=== PATIENT | female | born 1985 | race American Indian/Alaskan Native ===

== ENCOUNTER 2017-07-11 06:23 | Inpatient (IN) | payer MEDICAID ==
--- NOTE | 2017-07-11 08:39 | History and Physical Report ---
History of Present Illness Date of examination: 07/11/17 Date of admission: 07/11/17 06:24 Chief complaint: Labor History of present illness: Pt is a 31yo BF EDC 07/11/17; EGA 40 0/7 weeks presents to L&D complaining of RUC's q 2-4 mins. She received care at [facility] since 19 weeks and course has been unremarkable except for sickle cell trait. records are not available and GBS is unknown. Past History Past Medical History: no pertinent history Past Surgical History: no surgical history [employer] History: abnormal PAP smear Family/Genetic History: none Social history: no significant social history, single - Obstetrical History Expected Date of Delivery: 07/11/17 Actual Gestation: 40 Week(s) 0 Day(s) : 3 Medications and Allergies Allergies Allergy/AdvReac Type Severity Reaction Status Date / Time aspirin AdvReac Swelling Verified 03/30/14 12:05 Home Medications Medication Instructions Recorded Confirmed Last Taken Type Pnv with Ca,No.72/Iron/FA 1 tab PO DAILY 03/30/14 07/11/17 07/10/17 History [ Plus Tablet] 1 Active Meds: Active Medications Ephedrine Sulfate (Ephedrine Sulfate) 10 mg IV Q2M PRN PRN Reason: Hypotension Ampicillin Sodium (Polycillin/Ns 2 Gm/100 Ml) 2 gm in 100 mls @ 100 mls/hr IV ONCE ONE PRN Reason: Protocol Stop: 07/11/17 09:59 Lactated Ringer's (Lactated Ringers) 1,000 mls @ 125 mls/hr IV DIRECT RIKA Oxytocin/Sodium Chloride (Pitocin/Ns 20 Unit/1000ml Drip) 20 units in 1,000 mls @ 125 mls/hr IV DIRECT RIKA Oxytocin/Sodium Chloride (Pitocin/Ns 30 Unit/500ml) 30 units in 500 mls @ 1 mls /hr IV TITR RIKA; 1 MILLIUNITS/MIN PRN Reason: Protocol Lidocaine (Xylocaine 2%) 20 ml INFILTRATI ONCE ONE Stop: 07/11/17 08:28 Mineral Oil (Mineral Oil) 30 ml PO QHS PRN PRN Reason: Constipation Terbutaline Sulfate (Brethine) 0.25 mg SUB-Q ONCE PRN PRN Reason: Hyperstimulation/Hypertonicity Terbutaline Sulfate (Brethine) 0.25 mg IVP ONCE PRN PRN Reason: Hyperstimulation/Hypertonicity Review of Systems All systems: negative - Vital Signs Vital signs: Vital Signs Temp Resp 98.5 F 18 07/11/17 06:36 07/11/17 06:36 Temp Pulse Resp BP Pulse Ox 98.5 F 90 18 96 07/11/17 06:36 07/11/17 08:36 07/11/17 06:36 07/11/17 08:36 - Physical Exam Breasts: Positive: deferred Cardiovascular: Regular rate Lungs: Positive: Clear to auscultation Abdomen: Positive: normal appearance Genitourinary (Female): Positive: normal external genitalia Vagina: Positive: normal moisture Uterus: Positive: enlarged Extremities: Positive: normal - Obstetrical FHR: category 1 Uterine Contraction Monitor Mode: External Cervical Dilatation: 7 Cervical Effacement Percentage: 100 station: -2 Uterine Contraction Pattern: Regular Uterine Tone Measurement Phase: Contraction Uterine Contraction Intensity: Moderate Results Result Diagrams: 07/11/17 08:40 All other labs normal. Assessment and Plan - Patient Problems (1) 40 weeks gestation of Onset Date: 07/11/17 Current Visit: Yes Status: Acute Plan to address problem: A: IUP @ 40 0/7 weeks in labor Unknown GBS P: Admit to L&D for expectant vaginal delivery IV Ampicillin
[2017-07-11] MEDS ORDERED: PITOCin/NS 20 UNIT/1000ML DRIP 20 UNITS/1,000 ML BAG IV SCH ×2 (09:00→13:00)
[2017-07-11] MEDS ORDERED: PITOCin/NS 30 UNIT/500ML 30 UNITS/500 ML BAG IV SCH (09:00)
[2017-07-11] MEDS ORDERED: POLYCILLIN/NS 2 GM/100 ML 2 GM/100 ML BAG IV ONE (09:00)
[2017-07-11] MEDS ORDERED: BRETHINE IVP PRN (09:00)
[2017-07-11] MEDS ORDERED: BRETHINE SUB-Q PRN (09:00)
[2017-07-11] MEDS ORDERED: ePHEDrine SULFATE IV PRN (09:00)
[2017-07-11] MEDS ORDERED: XYLOCAINE 2% INFILTRATI NR (09:00)
[2017-07-11] MEDS ORDERED: SUBLIMAZE IV PRN (09:00)
[2017-07-11] MEDS ORDERED: MINERAL OIL PO PRN (09:00)
[2017-07-11] MEDS ORDERED: LACTATED RINGERS 1,000 ML IV SCH (09:00)
[2017-07-11 09:10] LABS: Hematocrit 36.8 % (30.3-42.9); Hemoglobin 12.4 gm/dl (10.1-14.3); Mean Corpuscular HGB Conc 34 % (30-34); Mean Corpuscular Hemoglobin 28 pg (28-32); Mean Corpuscular Volume 84 fl (79-97); Red Blood Count 4.37 M/mm3 (3.65-5.03); Red Cell Distribution Width 15.9 % (13.2-15.2)
[2017-07-11 09:14] LABS: Platelet Count 195 K/mm3 (140-440)
--- NOTE | 2017-07-11 09:49 | Procedure Note ---
OB Delivery Note - Delivery Date of Delivery: 07/11/17 Surgeon: JACINDA OTERO Estimated blood loss: 200cc - Vaginal Delivery presentation: vertex Delivery position: OA Intrapartum events: precipitous labor- <3hr Delivery induction: none Delivery augmentation: rupture of membranes Delivery monitor: external FHT, external uterine Route of delivery: Delivery placenta: spontaneous Delivery cord: 3 umbilical vessels Episiotomy: none Delivery laceration: none Anesthesia: none Delivery comments: delivered OA and placed on Mom's chest for [id number] bonding and delayed cord clamping. - Infant A at 1 minute: 8 at 5 minutes: 9 Infant Gender: Female (3552gms)
[2017-07-11] MEDS ORDERED: PHENERGAN PO PRN (12:58)
[2017-07-11] MEDS ORDERED: TYLENOL PO PRN (12:58)
[2017-07-11] MEDS ORDERED: MILK OF MAGNESIA PO PRN (12:58)
[2017-07-11] MEDS ORDERED: LANSINOH TP PRN (12:58)
[2017-07-11] MEDS ORDERED: PERCOCET 5/325 PO PRN (12:58)
[2017-07-11] MEDS ORDERED: DULCOLAX PR PRN (12:58)
[2017-07-11] MEDS ORDERED: ZOFRAN IV PRN (12:58)
[2017-07-11] MEDS ORDERED: PHENERGAN PR PRN (12:58)
[2017-07-11] MEDS ORDERED: TUCKS PAD TP PRN (12:58)
[2017-07-11] MEDS ORDERED: BENADRYL PO PRN (12:58)
[2017-07-11] MEDS ORDERED: SODIUM CHLORIDE FLUSH SYRINGE 10 ML IV NR (13:00)
[2017-07-11] MEDS ORDERED: MOTRIN PO SCH (13:00)
[2017-07-11] MEDS: NORCO 5/325 PO PRN (19:48)
[2017-07-12 00:54] LABS: Hematocrit 36.6 % (30.3-42.9); Hemoglobin 12.3 gm/dl (10.1-14.3)
[2017-07-12] MEDS: COLACE PO SCH ×3 (05:13→23:41)
[2017-07-12] MEDS: FEOSOL PO SCH ×3 (05:13→23:42)
[2017-07-12] MEDS ORDERED: BOOSTRIX IM ONE (06:00)
[2017-07-12] MEDS ORDERED: M-M-R II VACCINE SUB-Q ONE (06:00)
--- NOTE | 2017-07-12 08:48 | Progress Note ---
Assessment and Plan - Patient Problems (1) 40 weeks gestation of Onset Date: 07/11/17 Current Visit: Yes Status: Resolved (2) (spontaneous vaginal delivery) Onset Date: 07/12/17 Current Visit: No Status: Resolved Plan to address problem: A: S/P - PPD #1 Doing well P: May go home tomorrow. Subjective - Subjective Date of service: 07/12/17 Principal diagnosis: s/p - PPD #1 Interval history: Pt is feeling well without complaints. Bleeding improved. Patient reports: appetite normal, voiding normally, pain well controlled, flatus , ambulating normally [place]: doing well, bottle feeding Objective - Vital Signs Latest vital signs: Vital Signs Temp Pulse Resp BP BP Pulse Ox 07/12/17 00:50 98.5 F 90 20 93/42 97 07/11/17 19:48 18 07/11/17 16:20 98.1 F 97 H 20 114/51 07/11/17 12:45 99 F 90 20 100/48 07/11/17 10:11 92 H 113/54 07/11/17 09:57 96 H 124/60 07/11/17 09:36 94 07/11/17 09:32 122 H 96 07/11/17 09:27 106 H 94 07/11/17 09:24 86 94 07/11/17 09:22 100 H 135/65 96 07/11/17 09:17 94 H 93 07/11/17 09:12 102 H 97 07/11/17 09:11 60 90 07/11/17 09:07 100 H 96 07/11/17 09:06 98.3 F 109 H 20 135/65 97 07/11/17 09:02 102 H 98 07/11/17 09:01 58 L 74 L 07/11/17 08:57 103 H 98 Intake and Output 07/11/17 07/12/17 07/12/17 22:59 06:59 14:59 Intake Total 440 360 Output Total 1600 900 Balance -1160 -540 Intake: Oral 440 360 Output: Urine 1600 900 Void 1600 900 Other: Total, Intake Amount 200 120 Total, Output Amount 700 400 # Voids Void 2 1 - Exam Breasts: Present: deferred Cardiovascular: Present: Regular rate Lungs: Present: Clear to auscultation Abdomen: Present: normal appearance, soft Uterus: Present: normal, firm, fundal height below umbilicus Extremities: Present: normal - Labs Labs: Abnormal lab results 07/11/17 Range/Units 08:40 WBC 14.3 H (4.5-11.0) K/mm3 RDW 15.9 H (13.2-15.2) % Laboratory Tests 07/11/17 07/11/17 07/11/17 08:40 08:40 08:40 WBC 14.3 H RBC 4.37 Hgb 12.4 Hct 36.8 MCV 84 MCH 28 MCHC 34 RDW 15.9 H Plt Count 195 RPR Nonreactive Blood Type O POSITIVE Antibody Screen Negative 07/12/17 00:27 WBC RBC Hgb 12.3 Hct 36.6 MCV MCH MCHC RDW Plt Count RPR Blood Type Antibody Screen
--- NOTE | 2017-07-12 08:59 | Discharge Summary ---
Providers - Providers Date of Admission: 07/11/17 06:24 Date of discharge: 07/13/17 Attending physician: JACINDA OTERO Primary care physician: JACINDA OTERO Hospitalization Reason for admission: active labor, IUP at term Delivery: Episiotomy: none Laceration: none Other procedures: none complications: none Discharge diagnosis: IUP at term delivered [place] baby: female Hospital course: Unremarkable. Condition at discharge: Good Disposition: DC-01 TO HOME OR SELFCARE - Discharge Diagnoses (1) 40 weeks gestation of Status: Resolved (2) (spontaneous vaginal delivery) Status: Resolved Plan - Discharge Medications Prescriptions: Ibuprofen [Motrin] 600 mg PO Q8H PRN #30 tablet PRN Reason: Pain Vit-Fe Fumar-FA [ Vitamin] 1 each PO QDAY #30 tablet - Provider Discharge Summary Activity: routine, no sex for 6 weeks, no heavy lifting 4 weeks, no strenuous exercise Diet: routine Instructions: routine Additional instructions: [] Smoking cessation referral if applicable(refer to patient education folder for contact #) [] Refer to [facility]'s [facility] Booklet Call your doctor immediately for: * Fever > 100.5 * Heavy vaginal bleeding ( >1 pad per hour) * Severe persistent headache * Shortness of breath * Reddened, hot, painful area to leg or breast * Drainage or odor from incision. * Keep incision clean and dry at all times and follow doctor's instructions regarding bathing/showering - Follow up plan Follow up: JACINDA OTERO MD [Primary Care Provider] - 6 Weeks
[2017-07-12] MEDS: PRENATAL VITAMIN PO SCH (10:46)
[2017-07-12] MEDS ORDERED: Fluarix Quad 2017-2018(36 MOS+ IM ONE (12:00)
[2017-07-12] MEDS: NORCO 5/325 PO PRN (17:48)
[2017-07-13] MEDS: NORCO 5/325 PO PRN (08:00)
[2017-07-13] MEDS: FEOSOL PO SCH (10:28)
[2017-07-13] MEDS: COLACE PO SCH (10:28)
[2017-07-13] MEDS: PRENATAL VITAMIN PO SCH (10:28)
[2017-07-13 15:55] VITALS: BP 118/68
== END 2017-07-13 15:40 | disposition home or self-care (01) | DRG 775 ==
LOC: TRG 06:23 → LD 06:24 → TRG 07:10 → OB 11:35
PROVIDERS: ADMIT Obstetrics & Gynecology; ATTEND Obstetrics & Gynecology
PROC: 10E0XZZ Delivery of Products of Conception, External Approach (ICD-10-PCS; principal; 2017-07-11)
PROC: 3E0234Z Introduction of Serum, Toxoid and Vaccine into Muscle, Percutaneous Approach (ICD-10-PCS; 2017-07-12)
DX: O62.3 Precipitate labor (principal); Z3A.40 40 weeks gestation of pregnancy; Z37.0 Single live birth; Z88.6 Allergy status to analgesic agent; Z23 Encounter for immunization; O99.02 Anemia complicating childbirth; D57.3 Sickle-cell trait
CPT/HCPCS: 36415; 85014; 85018; 85027; 86592; 86850; 86900; 86901; 90471; 90686; 90715; J0290; J2590; J3010; J7120

== ENCOUNTER 2021-08-16 18:08 | Emergency (ER) | payer MEDICAID ==
[2021-08-16 18:22] VITALS: BP 126/59
[2021-08-16 19:42] LABS: Basophils # (Auto) 0.1 K/mm3 (0.0-0.1); Basophils % (Auto) 0.7 % (0.0-1.8); Eosinophils # (Auto) 0.2 K/mm3 (0.0-0.4); Hematocrit 36.7 % (30.3-42.9); Hemoglobin 12.3 gm/dl (10.1-14.3); Lymphocytes # (Auto) 3.2 K/mm3 (1.2-5.4); Lymphocytes % (Auto) 42.9 % (13.4-35.0); Mean Corpuscular HGB Conc 33 % (30-34); Mean Corpuscular Volume 83 fl (79-97); Monocytes # (Auto) 0.6 K/mm3 (0.0-0.8); Monocytes % (Auto) 8.5 % (0.0-7.3); Platelet Count 311 K/mm3 (140-440); Red Blood Count 4.45 M/mm3 (3.65-5.03); Red Cell Distribution Width 16.3 % (13.2-15.2)
[2021-08-16 20:05] LABS: Alanine Aminotransferase 12 units/L (7-56); Albumin 4.4 g/dL (3.9-5); Blood Urea Nitrogen 11 mg/dL (7-17); Calcium 9.2 mg/dL (8.4-10.2); Hemolysis Index 13
[2021-08-16 20:10] LABS: Bacteria,Urine 1+ /HPF (Negative); Bilirubin,Urine NEG (Negative); Blood,Urine NEG (Negative); Color,Urine Yellow (Yellow); Mucus,Urine FEW /HPF; Protein,Urine <15 mg/dL mg/dL (Negative); Urobilinogen,Urine < 2.0 mg/dL (<2.0)
[2021-08-16 20:15] LABS: BUN/Creatinine Ratio 18
--- NOTE | 2021-08-16 21:13 | Emergency Department Report ---
ED Female HPI - General Chief complaint: Vaginal Bleeding Stated complaint: POSS MISCARRIAGE (BLEEDING) Source: patient Mode of arrival: Ambulatory Limitations: No Limitations - History of Present Illness Initial comments: 35-year-old female presents to the ED complaining of vaginal bleeding. Patient states that last menstrual cycle was June 18, 2021. Patient states that she went to [facility] [place] and had a test done and was positive. She states that she has some abdominal cramping today and vaginal bleeding x2 days. Patient states that vaginal bleeding has lightened up to a spotting but she did notice passing a clot on yesterday . Patient has not been evaluate by her UNDERTAKER ASSISTANT. Patient is 5 part 3 A1. She denies any vaginal discharge at present. Patient denies any fever chills or nausea. MD Complaint: vaginal bleeding Onset/Timin -: days(s) Associated Symptoms: denies other symptoms - Related Data : 5 Para: 3 A: 1 Home Medications Medication Instructions Recorded Confirmed Last Taken Pnv with Ca,No.72/Iron/FA 1 tab PO DAILY 03/30/14 07/11/17 07/10/17 [ Plus Tablet] 1 Previous Rx's Medication Instructions Recorded Last Taken Type Ibuprofen [Motrin] 600 mg PO Q8H PRN #30 tablet 07/12/17 Unknown Rx Vit-Fe Fumar-FA [ 1 each PO QDAY #30 tablet 07/12/17 Unknown Rx Vitamin] Acetaminophen [Acetaminophen 325 mg VA Q6HR PRN #30 supp 07/13/17 Unknown Rx SUPPOS] HYDROcodone/ACETAMINOPHEN [[place] 1 each PO Q6HR #7 tablet 07/13/17 Unknown Rx 5-325 Tablet] Ciprofloxacin HCl 500 mg PO BID 7 Days #14 tab 08/16/21 Unknown Rx Hyoscyamine Subl [Levsin Sl 0.125 0.125 mg SL Q6HR PRN 5 Days #20 tab 08/16/21 Unknown Rx TAB] Allergies Allergy/AdvReac Type Severity Reaction Status Date / Time aspirin Allergy Swelling Verified 07/11/17 13:06 NSAIDS (Non-Steroidal Allergy Hives Verified 07/11/17 13:17 Anti-Inflamma ED Review of Systems ROS: Stated complaint: POSS MISCARRIAGE (BLEEDING) Other details as noted in HPI Constitutional: denies: chills, fever Eyes: denies: eye pain, eye discharge, vision change ENT: denies: ear pain, throat pain Respiratory: denies: cough, shortness of breath, wheezing Cardiovascular: denies: chest pain, palpitations Endocrine: no symptoms reported Gastrointestinal: denies: abdominal pain, nausea, diarrhea Genitourinary: other (Vaginal bleeding). denies: urgency, dysuria, discharge Musculoskeletal: denies: back pain, joint swelling, arthralgia Skin: denies: rash, lesions Neurological: denies: headache, weakness, paresthesias Psychiatric: denies: anxiety, depression Hematological/Lymphatic: denies: easy bleeding, easy bruising ED Past Medical Hx - Past Medical History Hx Hypertension: No Hx Congestive Heart Failure: No Hx Diabetes: No Hx Deep Vein Thrombosis: No Hx Renal Disease: No Hx Sickle Cell Disease: Yes (trait) Hx Arthritis: No Hx Seizures: No Hx Asthma: No Hx COPD: No Hx HIV: No - Social History Smoking Status: Never Smoker - Medications Home Medications: Home Medications Medication Instructions Recorded Confirmed Last Taken Type Pnv with Ca,No.72/Iron/FA 1 tab PO DAILY 03/30/14 07/11/17 07/10/17 History [ Plus Tablet] 1 Ibuprofen [Motrin] 600 mg PO Q8H PRN #30 tablet 07/12/17 Unknown Rx Vit-Fe Fumar-FA [ 1 each PO QDAY #30 tablet 07/12/17 Unknown Rx Vitamin] Acetaminophen [Acetaminophen 325 mg VA Q6HR PRN #30 supp 07/13/17 Unknown Rx SUPPOS] HYDROcodone/ACETAMINOPHEN [[place] 1 each PO Q6HR #7 tablet 07/13/17 Unknown Rx 5-325 Tablet] Ciprofloxacin HCl 500 mg PO BID 7 Days #14 tab 08/16/21 Unknown Rx Hyoscyamine Subl [Levsin Sl 0.125 0.125 mg SL Q6HR PRN 5 Days #20 tab 08/16/21 Unknown Rx TAB] ED Physical Exam - General Limitations: No Limitations General appearance: alert, in no apparent distress - Head Head exam: Present: atraumatic, normocephalic - Eye Eye exam: Present: normal appearance - ENT ENT exam: Present: mucous membranes moist - Neck Neck exam: Present: normal inspection - Respiratory Respiratory exam: Present: normal lung sounds bilaterally. Absent: respiratory distress - Cardiovascular Cardiovascular Exam: Present: regular rate, normal rhythm. Absent: systolic murmur, diastolic murmur, rubs, gallop - GI/Abdominal GI/Abdominal exam: Present: soft, normal bowel sounds - Extremities Exam Extremities exam: Present: normal inspection - Back Exam Back exam: Present: normal inspection - Neurological Exam Neurological exam: Present: alert, oriented X3 - Psychiatric Psychiatric exam: Present: normal affect, normal mood - Skin Skin exam: Present: warm, dry, intact, normal color. Absent: rash ED Course Vital Signs 08/16/21 18:18 Temperature 99.0 F Pulse Rate 108 H Respiratory 20 Rate Blood Pressure 126/59 O2 Sat by Pulse 99 Oximetry ED Medical Decision Making - Lab Data Result diagrams: 08/16/21 19:29 08/16/21 19:29 - Medical Decision Making 35-year-old female presents to the ED complaining of vaginal bleeding. Patient states that last menstrual cycle was June 18, 2021. Patient states that she went to [facility] [place] and had a test done and was positive. She states that she has some abdominal cramping today and vaginal bleeding x2 days. Patient states that vaginal bleeding has lightened up to a spotting but she did notice passing a clot on yesterday . Patient has not been evaluate by her UNDERTAKER ASSISTANT. Patient is 5 part 3 A1. She denies any vaginal discharge at present. Patient denies any fever chills or nausea. Physical examination unremarkable. Plan is a patient that hCG shows less than 2 and non. Patient is to follow-up with UNDERTAKER ASSISTANT. Patient urinalysis show ed a urinary tract infection. Abnormal Lab Results 08/16/21 08/16/21 08/16/21 19:29 19:29 19:29 WBC 7.4 RBC 4.45 Hgb 12.3 Hct 36.7 MCV 83 MCH 28 MCHC 33 RDW 16.3 H Plt Count 311 Lymph % (Auto) 42.9 H Terry % (Auto) 8.5 H Eos % (Auto) 3.0 Baso % (Auto) 0.7 Lymph # (Auto) 3.2 Terry # (Auto) 0.6 Eos # (Auto) 0.2 Baso # (Auto) 0.1 Seg Neutrophils % 44.9 Seg Neutrophils # 3.3 Sodium Potassium Chloride Carbon Dioxide Anion Gap BUN Creatinine Estimated GFR BUN/Creatinine Ratio Glucose Calcium Total Bilirubin AST ALT Alkaline Phosphatase Total Protein Albumin Albumin/Globulin Ratio HCG, Quant < 2 Urine Color Urine Turbidity Urine pH Ur Specific [place] Urine Protein Urine Glucose (UA) Urine Ketones Urine Blood Urine Nitrite Urine Bilirubin Urine Urobilinogen Ur Leukocyte Esterase Urine WBC (Auto) Urine RBC (Auto) U Epithel Cells (Auto) Urine Bacteria (Auto) Urine Mucus Blood Type O POSITIVE 08/16/21 08/16/21 19:29 19:33 WBC RBC Hgb Hct MCV MCH MCHC RDW Plt Count Lymph % (Auto) Terry % (Auto) Eos % (Auto) Baso % (Auto) Lymph # (Auto) Terry # (Auto) Eos # (Auto) Baso # (Auto) Seg Neutrophils % Seg Neutrophils # Sodium 137 Potassium 4.1 Chloride 103.5 Carbon Dioxide 21 L Anion Gap 17 BUN 11 Creatinine 0.6 Estimated GFR > 60 BUN/Creatinine Ratio 18 Glucose 88 Calcium 9.2 Total Bilirubin 0.20 AST 13 ALT 12 Alkaline Phosphatase 58 Total Protein 7.9 Albumin 4.4 Albumin/Globulin Ratio 1.3 HCG, Quant Urine Color Yellow Urine Turbidity Clear Urine pH 5.0 Ur Specific [place] 1.013 Urine Protein <15 mg/dl Urine Glucose (UA) Neg Urine Ketones Neg Urine Blood Neg Urine Nitrite Pos Urine Bilirubin Neg Urine Urobilinogen < 2.0 Ur Leukocyte Esterase Mod Urine WBC (Auto) 23.0 H Urine RBC (Auto) 2.0 U Epithel Cells (Auto) 3.0 Urine Bacteria (Auto) 1+ Urine Mucus Few Blood Type Rechecked the patient is resting quietly quietly and comfortable and feeling better. I discussed the results of diagnostic study, my clinical impression and the plan for further treatment with the patient. Patient agrees with plan and discharge at this present time. All question addressed. I have given the patient instruction regarding a diagnosis ,expectation ,follow- up and return precaution. I explained to the patient that emergent condition may arise and to return to the ED for new worsen and any new persisting condition. I have explained the importance of following up with the primary care physician or referral physician listed below has instructed. The patient verbalized understanding of discharge instruction. Critical care attestation.: If time is entered above; I have spent that time in minutes in the direct care of this critically ill patient, excluding procedure time. ED Disposition Clinical Impression: Acute urinary tract infection Disposition: HOME / SELF CARE / HOMELESS Is pt being admited?: No Does the pt Need Aspirin: No Condition: Stable Instructions: Urinary Tract Infection, Adult, [id number] Additional Instructions: Take medication as prescribed Return to the ED for any worsening symptom Prescriptions: Ciprofloxacin HCl 500 mg PO BID 7 Days #14 tab Hyoscyamine Subl [Levsin Sl 0.125 TAB] 0.125 mg SL Q6HR PRN 5 Days #20 tab PRN Reason: Spasms Referrals: PRIMARY CARE, [Primary Care Provider] - 3-5 Days [facility] [Provider Group] - 3-5 Days Forms: Work/School Release Form(ED)
== END 2021-08-16 21:31 | disposition home or self-care (01) ==
LOC: ED 18:08
DX: N39.0 Urinary tract infection, site not specified (principal); Z88.6 Allergy status to analgesic agent
CPT/HCPCS: 36415; 80053; 81001; 84702; 85025; 86850; 86900; 86901; 87076; 87086; 87186; 99283